=== PATIENT | male | born 1965 | race Caucasian/White ===

== ENCOUNTER → 2020-09-14 13:36 | Outpatient (BNVA) | payer OTHER, SELFPAY | PROVIDERS: Visit Provider Family Medicine | DX: Z13.1 Encounter for screening for diabetes mellitus (principal); Z13.6 Encounter for screening for cardiovascular disorders; R03.0 Elevated blood-pressure reading, without diagnosis of hypertension | CPT/HCPCS: 80053; 80061 ==

== ENCOUNTER → 2021-12-24 10:24 | Outpatient (BNVA) | payer OTHER, SELFPAY | PROVIDERS: Visit Provider Family Medicine | DX: Z13.220 Encounter for screening for lipoid disorders (principal); H93.12 Tinnitus, left ear; R30.0 Dysuria | CPT/HCPCS: 80053; 80061; 84153; 85025 ==

== ENCOUNTER 2022-04-23 06:08 | Emergency (ER) | payer OTHER, SELFPAY ==
--- NOTE | 2022-04-23 06:13 | XRR_ITS ---
PROCEDURE INFORMATION: Exam: XR Chest Exam date and time: 04/23/2022 6:51 AM Age: 56 years old Clinical indication: Cough and dyspnea; Additional info: Dyspnea/cough TECHNIQUE: Imaging protocol: Radiologic exam of the chest. Views: 1 view. COMPARISON: No relevant prior studies available. FINDINGS: Lungs: Unremarkable. No consolidation. Pleural spaces: Unremarkable. No pleural effusion. No pneumothorax. Heart/Mediastinum: Unremarkable. No cardiomegaly. Bones/joints: Unremarkable. XR/XR chest 1V portable [id number] IMPRESSION: No acute findings.
[2022-04-23 06:14] VITALS: BP 139/95; PULSE 75; RESP 18; TEMP 36.4; O2SAT 97; BMI 23.6
--- NOTE | 2022-04-23 06:14 | ECG_ITS ---
[facility] Test Date: 2022-04-23 Pat Name: Daniel Cabral Department: Room: Gender: Male Tour Guide: : 1965 Requested By: Luis Enrique Dalal Order Number: [id number] Anh MD: Marivel Munoz M.D. Measurements Intervals [place] Rate: 68 P: 48 AK: 169 QRS: 34 QRSD: 126 T: 27 QT: 391 QTc: 417 Interpretive Statements SINUS RHYTHM POSSIBLE LEFT ATRIAL ENLARGEMENT [-0.1mV P-WAVE IN V1/V2] POSSIBLE LATERAL MYOCARDIAL INFARCTION , OF INDETERMINATE AGE [30 ms Q WAVE IN I/aVL/V5/V6] No previous ECG available for comparison Electronically Signed On 04-24-2022 19:36:28 CDT by Marivel Munoz M.D. [id number]
[2022-04-23 06:32] VITALS: BP 130/94; PULSE 84; RESP 20; O2SAT 97
[2022-04-23 06:40] VITALS: BP 126/86; BP 127/101; BP 138/91; PULSE 75; PULSE 77; PULSE 82
--- NOTE | 2022-04-23 06:42 | ED_ITS ---
HPI - Syncope General: Chief Complaint: Syncope Stated Complaint: fall/passed out Time Seen by Provider: 04/23/22 06:12 Source: patient Mode of arrival: ambulatory History of Present Illness: 56-year-old male presents emergency room after near syncopal episode overnight. He states he did not eat and drink normally yesterday and when he went to the bed he did drink some tea. Around 4 AM he got up and tried to go to the bathroom he got lightheaded and dizzy he denies falling sounds like he may have just can of slid to the floor sat himself down. He states that he is shaking sweating feeling after this episode he drank some water was very thirsty never had any vomiting or diarrhea did have a little bit of loose stool. Patient is not on any prescription medications he denies any history of diabetes no history of coronary disease no previous coronary artery evaluations. He blames most of this on his irregular eating pattern yesterday states he is very susceptible to variations in his diet and schedule. MD complaint: almost passed out Onset (ago): hour(s) Prodromal symptoms: lightheaded Context: getting out of bed and standing up Injuries sustained associated with event: none Associated symptoms: Deny abdominal pain, chest pain, fever(s), headache(s), lightheadedness, nausea, short of breath, vertigo or weakness Treatments prior to arrival: none Review of Systems Const: Denies: fever(s), chills, fatigue or malaise ENMT: Denies: throat pain, ear or mastoid pain, nasal discharge or nasal congestion Card: Denies: chest pain, palpitations, irregular heart rhythm, edema or light headedness Resp: Denies: dyspnea, productive cough or non-productive cough GI: Reports: diarrhea; Denies: abdominal pain, nausea or vomiting : Denies: flank pain, difficulty urinating, dysuria, urinary frequency or urinary urgency Skin/Breast: Denies: rash or pruritus Neuro: Denies: headache(s) or vertigo PFS ED PFSH: Medical History Tinnitus of left ear Surgical History H/O tooth extraction Family History Father Hyperlipidemia Social History Smoking and tobacco status: never smoked Alcohol intake: never Adopted: No Caregiver/support person: No Lives independently: Yes Household members: spouse Housing: House Marital status: Number of children: 1 Current occupational status: employed Physical Exam Const: GENERAL APPEARANCE: cooperative and comfortable ORIENTATION/CONSCIOUSNESS: Yes awake, Yes oriented to person, Yes oriented to place and Yes oriented to time HENMT: COMMON NORMALS: normocephalic, atraumatic and hearing grossly normal bilaterally HEAD & SCALP: normocephalic and atraumatic Resp: COMMON NORMALS: normal respiratory effort, No retractions, No use of accessory muscles and clear to auscultation bilaterally AUSCULTATION: clear to auscultation bilaterally Cardio: COMMON NORMALS: regular rate, regular rhythm and No murmurs present (Cardio) RATE: regular rate RHYTHM: regular rhythm GI: COMMON NORMALS: Soft to palpation and No hepatosplenomegaly present AUSCULTATION: Yes normoactive bowel sounds PALPATION: Yes Soft to palpation, No Tenderness to palpation present (GI), No Guarding due to palpation present (GI) and Yes No hepatosplenomegaly present Extremity: COMMON NORMALS: normal to inspection, capillary refill normal, no clubbing, cyanosis or edema, no calf tenderness and no pedal edema Neuro: SENSORIUM/ORIENTATION: Yes oriented to person, Yes oriented to place and Yes oriented to time Skin: COMMON NORMALS: no rashes or lesions noted GENERAL SKIN EXAM: no rashes or lesions noted Course Vital Signs: Vital signs: Vital Signs Temperature 97.5 F L 04/23/22 06:14 Pulse Rate 81 04/23/22 08:30 Respiratory Rate 18 04/23/22 08:30 Blood Pressure 117/81 04/23/22 08:30 Pulse Oximetry 94 04/23/22 08:30 MDM - Syncope Medical Decision Making Patient given IV fluids labs imaging and EKG reviewed EKG is no no acute changes. Patient is feeling much better ambulated without difficulty. Suspect he had an orthostatic episode when he stood up quickly to go to the bathroom in addition he was trying to delay urination which increases intra-abdominal pressure and likely may have caused a little bit of a vasovagal response lowering of his heart rate at the same time he had some orthostatic changes which contributed to the entire episode. Has not had this before on exam he has no heart murmurs no other findings or history that he gives is suggestive of coronary artery disease. For now advised him to just be mindful when he first gets out of bed in the middle of the night move a little slowly. If this persists or he has further problems follow-up with his primary care doctor he can have further evaluation as deemed appropriate Medical Records I reviewed the patient's medical records. Lab Data I reviewed the patient's lab results. 04/23/22 06:29 04/23/22 06:29 Radiology Impressions Chest X-Ray 04/23/22 06:13 IMPRESSION: No acute findings. Laboratory Results WBC 14.2 10^3/uL (4.0-10.0) H 04/23/22 06:29 RBC 4.95 10^6/uL (4.1-5.3) 04/23/22 06:29 Hgb 16.1 g/dL (11.7-16.6) 04/23/22 06:29 Hct 46.1 % (42.0-52.0) 04/23/22 06:29 MCV 93.1 fl (80-94) 04/23/22 06:29 MCH 32.5 pg (28.0-34.0) 04/23/22 06:29 MCHC 34.9 g/dL (30.0-36.0) 04/23/22 06:29 RDW 12.0 % (12.1-15.1) L 04/23/22 06:29 Plt Count 210 10^3/cmm (130-400) 04/23/22 06:29 MPV 10.5 fL (7.4-10.4) H 04/23/22 06:29 Neut % (Auto) 86.2 % 04/23/22 06:29 Lymph % (Auto) 7.8 % 04/23/22 06:29 [place] % (Auto) 5.4 % 04/23/22 06:29 Eos % (Auto) 0.1 % 04/23/22 06:29 Baso % (Auto) 0.1 % 04/23/22 06:29 Neut # (Auto) 12.24 10^3/uL (1.8-7.7) H 04/23/22 06:29 Lymph # (Auto) 1.1 10^3/uL (0.8-4.8) 04/23/22 06:29 [place] # (Auto) 0.8 10^3/uL (0.2-0.9) 04/23/22 06:29 Eos # (Auto) 0.0 10^3/uL (0.0-0.8) 04/23/22 06:29 Baso # (Auto) 0.0 10^3/uL (0.0-0.1) 04/23/22 06:29 Nucleated RBC % (auto) 0 % 04/23/22 06:29 Nucleated RBCs # 0.0 /100WBC 04/23/22 06:29 Sodium 137 mmol/L (136-145) 04/23/22 06:29 Potassium 4.3 mmol/L (3.5-5.1) 04/23/22 06:29 Chloride 100 mmol/L (98-107) 04/23/22 06:29 Carbon Dioxide 26 mmol/L (22-29) 04/23/22 06:29 Anion Gap 15.3 (5-19) 04/23/22 06:29 BUN 8 mg/dL (6-20) 04/23/22 06:29 Creatinine 0.8 mg/dL (0.7-1.2) 04/23/22 06:29 GFR Calculation 100.7 mL/min (90-130) 04/23/22 06:29 Glucose 105 mg/dL (65-115) 04/23/22 06:29 POC Glucose 113 mg/dL (70-110) H 04/23/22 06:46 Calculated Osmolality 283 mOsm/kg (285-295) L 04/23/22 06:29 Calcium 9.2 mg/dL (8.5-10.5) 04/23/22 06:29 Total Bilirubin 0.6 mg/dL (0.15-1.2) 04/23/22 06:29 AST 21 U/L (0-40) 04/23/22 06:29 ALT 21 U/L (0-41) 04/23/22 06:29 Alkaline Phosphatase 94 U/L (40-130) 04/23/22 06:29 Troponin T Baseline 18 ng/L (0-15) H 04/23/22 06:29 Troponin T 120 Minute 19.28 ng/L (0-15) H 04/23/22 08:35 Delta Troponin T 1.28 ABS# (0-10) 04/23/22 08:35 Total Protein 6.7 g/dL (6.6-8.7) 04/23/22 06:29 Albumin 4.3 g/dL (3.5-5.2) 04/23/22 06:29 Globulin 2.4 g/dL (1.3-4.6) 04/23/22 06:29 Discharge Plan Discharge Patient Disposition: Home Clinical Impression: Syncope due to orthostatic hypotension Condition: Stable Prescriptions: No Action doxycycline hyclate 100 mg capsule 100 mg PO BID 10 Days Qty: 20 0RF Discharge Orders: Discharge ED (Routine); Ordered 04/23/22 Ordered By: Luis Enrique Huston Referrals: Lane Dee MD [Primary Care Provider] - Patient Instructions: Opioid Safety, Pain Management Activity Restrictions/Additional Instructions: You were seen today after a syncopal episode. Your EKGs and labs and enzymes were normal. This appears to been related to just having set up antiblood transient drop in blood pressure. Increase oral fluid intake follow-up with your primary care doctor if you have recurrent episodes. Coding Level of Care Code ED Operations Administrative Assistant for Mari Swift
[2022-04-23 06:43] LABS: Basophils % 0.1 %; Eosinophils % 0.1 %; Hematocrit 46.1 % (42.0-52.0); Hemoglobin 16.1 g/dL (11.7-16.6); Lymphocytes # 1.1 10^3/uL (0.8-4.8); Lymphocytes % 7.8 %; Mean Corpuscular HGB Conc 34.9 g/dL (30.0-36.0); Mean Corpuscular Hemoglobin 32.5 pg (28.0-34.0); Mean Corpuscular Volume 93.1 fl (80-94); Mean Platelet Volume 10.5 fL (7.4-10.4); Monocytes # 0.8 10^3/uL (0.2-0.9); Monocytes % 5.4 %; Neutrophils # 12.24 10^3/uL (1.8-7.7); Neutrophils % 86.2 %; Nucleated Red Blood Cells % 0 %; Platelet Count 210 10^3/cmm (130-400); Red Blood Count 4.95 10^6/uL (4.1-5.3); White Blood Count 14.2 10^3/uL (4.0-10.0)
[2022-04-23 06:50] LABS: Glucose Point of Care 113 mg/dL (70-110)
[2022-04-23 07:04] LABS: Troponin(5th) Baseline 18 ng/L (0-15)
[2022-04-23] MEDS: sodium chloride 0.9% 1,000 ML 999 ML IV (07:04)
[2022-04-23 07:05] LABS: Alanine Aminotransferase 21 U/L (0-41); Albumin Level 4.3 g/dL (3.5-5.2); Alkaline Phosphatase 94 U/L (40-130); Aspartate Amino Transferase 21 U/L (0-40); Blood Urea Nitrogen 8 mg/dL (6-20); Calcium 9.2 mg/dL (8.5-10.5); Carbon Dioxide 26 mmol/L (22-29); Chloride 100 mmol/L (98-107); Globulin 2.4 g/dL (1.3-4.6); Glomerular Filtration Rate 100.7 mL/min (90-130); Glucose 105 mg/dL (65-115); Osmolality Calculated 283 mOsm/kg (285-295); Sodium 137 mmol/L (136-145); Total Bilirubin 0.6 mg/dL (0.15-1.2); Total Protein 6.7 g/dL (6.6-8.7)
[2022-04-23 07:12] LABS: Anion Gap 15.3 (5-19); Potassium 4.3 mmol/L (3.5-5.1)
[2022-04-23 07:30] VITALS: BP 119/86; PULSE 70; RESP 12; O2SAT 98
[2022-04-23 08:30] VITALS: BP 117/81; PULSE 81; RESP 18; O2SAT 94
--- NOTE | 2022-04-23 09:09 | PC.NURSE ---
PT AMBULATED TO RESTROOM. GAIT EVEN AND BALANCED
[2022-04-23 09:14] LABS: Troponin 5 2HR 19.28 ng/L (0-15)
[2022-04-23 09:19] LABS: Troponin 5 2HR Delta 1.28 ABS# (0-10)
[2022-04-23 10:00] VITALS: PULSE 76; RESP 16; O2SAT 97
== END 2022-04-23 10:01 | disposition home or self-care (01) ==
PROVIDERS: Emergency Provider Family Medicine; PCP Family Medicine
DX: I95.1 Orthostatic hypotension (principal)
CPT/HCPCS: 36416; 71045; 80053; 82962; 84484; 85025; 93005; 96360; 96361; 99285; J7030

== ENCOUNTER 2023-12-11 13:22 | Outpatient (CLI) | payer OTHER, SELFPAY ==
--- NOTE | 2023-12-11 13:27 | MR_ITS ---
WS: [id number] MRI HEAD WITH CONTRAST WITH ATTENTION TO THE INTERNAL AUDITORY CANALS TECHNIQUE: Sagittal T1, T2 axial, T2 axial flair, axial susceptibility weighted imaging, axial diffus ion weighted images, and coronal T2 images were obtained. Pre and post T1 axial and post T1 coronal i mages. ADC and FSPGR images. Post gadolinium images with attention to the internal auditory canals. A xial fiesta imaging. CLINICAL INFORMATION: TINNITUS, L EAR COMPARISON: None. FINDINGS: No evidence of restricted diffusion to suggest acute ischemia. Ventricular system and basal cisterns are patent. Minimal small vessel changes. Mild parenchymal volume loss. Normal posterior fossa. Annemarie l vascular flow voids at the skull base. Mild mucosal thickening in the paranasal sinuses. Retention cyst RIGHT maxillary sinus measuring 10 mm. Mastoid air cells are well aerated. No hemosiderin on the susceptibly weighted images. Temporal lobes and hippocampal formations are normal in appearance. Proximal 7th and 8th cranial ner ves are normal in appearance. Normal trigeminal nerve root entry zones. No evidence of enhancing IAC or CP angle mass. No abnormal gadolinium enhancement. Normal dural venous sinuses. MR/MR iac's wo/w con* [id number] IMPRESSION: 1. No evidence of enhancing IAC or CP angle mass. 2. Proximal 7th and 8th cranial nerves appear normal. Normal trigeminal nerve root entry zones. 3. Minimal small vessel changes. Mild parenchymal volume loss. 4. Mastoid air cells are well aerated. 5. Mild mucosal thickening in the paranasal sinuses with a small retention cys t or polyp RIGHT maxillary sinus measuring 10 mm.
[2023-12-11] MEDS: gadobenate dimeglumine 20 mL vial IV (13:53)
== END 2023-12-11 13:23 | disposition home or self-care (01) ==
LOC: RAD 13:24
PROVIDERS: PCP Family Medicine; Visit Provider Specialist
DX: H93.12 Tinnitus, left ear (principal); J34.1 Cyst and mucocele of nose and nasal sinus
CPT/HCPCS: 70553

== ENCOUNTER → 2025-01-08 11:48 | Outpatient (BNVA) | payer BC, SELFPAY | PROVIDERS: PCP Family Medicine; Visit Provider Family Medicine | DX: Z13.6 Encounter for screening for cardiovascular disorders (principal); Z12.5 Encounter for screening for malignant neoplasm of prostate | CPT/HCPCS: 80053; 80061; 84153; 84439; 84443; 85025 ==